=== PATIENT | male | born 1990 | race Hispanic/Latino ===

== ENCOUNTER 2019-11-22 10:48 | Inpatient (IN) | payer OTHER ==
[2019-11-21 21:00] VITALS: BP 114/96
[~2019-11-22] VITALS: Ht 180.3 cm; Wt 147.7 kg
--- OUTSIDE RECORDS SUMMARY | 2019-11-22 10:55 | XMS REPORT | Clinical Summary ---
Author Author [facility] Address Unknown Phone Unavailable Care Team Providers Care Ranch Manager Name Role Phone Asked, No Pcp PCP Unavailable Allergies No Known Allergies Medications Not on file Active Problems Not on file Social History Date Tobacco Use Types Packs/Day Years Used Current Every Day Smoker Cigarettes 0.5 Drinks/Week oz/Week Comments Alcohol Use pt reports having a few drinks a day Yes Sex Assigned at Date Recorded Not on file Industry Job Start Date Occupation Not on file Not on file Not on file Travel End Travel History Travel Start No recent travel history available. Last Filed Vital Signs Not on file Plan of Treatment Health Maintenance Due Date Last Done Comments INFLUENZA VACCINE 01/20/2020 Results Not on fileafter 11/21/2018 Insurance Type Payer Benefit Subscriber ID Effective Phone Address Plan / Dates Group PPO BCBS BCBS xxxxxxxxxxxx 2015- CHOICE Present PPO/JACINTA PEDERSON PPO Advance Directives For more information, please contact: [phone] Patient Card Doffer Explanation Type Date Recorded Advance Directives, Living Will and Medical Power of Steel Manager
[2019-11-22] MEDS ORDERED: SODIUM CHLORIDE 0.9% 1000ML 1,000 ML IV STA (11:05)
[2019-11-22] MEDS ORDERED: PANTOPRAZOLE 40 MG 10ML VIAL IV STA (11:05)
[2019-11-22] MEDS ORDERED: ONDANSETRON HCL INJ 2MG/ML 2ML 2 MG/ML VIAL IV STA (11:05)
[2019-11-22] MEDS ORDERED: LORAZEPAM INJ 2 MG/ML VIAL IV ONE ×2 (11:15→14:00)
[2019-11-22 12:30] LABS: BASOPHILS # (AUTO) 0.1 (0.0-0.1); BASOPHILS % 0.7 % (0.0-1.0); EOSINOPHILS # (AUTO) 0.1 (0.0-0.4); EOSINOPHILS % 1.6 % (0.0-6.0); HEMATOCRIT 38.2 % (38.2-49.6); HEMOGLOBIN 12.3 g/dL (14.0-18.0); LYMPHOCYTES # (AUTO) 0.8 (1.0-3.2); LYMPHOCYTES % 9.6 % (18.0-39.1); MEAN CORPUSCULAR HEMOGLOBIN 31.2 pg (28-32); MEAN CORPUSCULAR HGB CONC 32.2 g/dL (31-35); MONOCYTES # (AUTO) 0.7 (0.2-0.8); MONOCYTES % 8.6 % (4.4-11.3); NEUTROPHILS # (AUTO) 6.5 (2.1-6.9); PLATELET COUNT 147 x10e3/uL (140-360); RED BLOOD COUNT 3.94 x10e6/uL (4.3-5.7)
--- NOTE | 2019-11-22 12:39 | Diagnostic Imaging Report ---
EXAMINATION: CHEST SINGLE (PORTABLE) INDICATION: GI bleeding COMPARISON: None FINDINGS: LINES/TUBES:None LUNGS:The lungs are well-inflated. No focal consolidation or pulmonary edema. PLEURA:No pleural effusion or pneumothorax. MEDIASTINUM:The cardiomediastinal silhouette appears normal in size and shape. BONES/SOFT TISSUES:No acute osseous injury. ABDOMEN:No free air under the diaphragm. IMPRESSION: No focal pneumonia or pulmonary edema. Signed by: Chula Rodriguez MD on 11/22/2019 12:35 PM
[2019-11-22 12:47] LABS: INR 1.05; PROTHROMBIN TIME 14.4 seconds (11.9-14.5)
[2019-11-22 12:48] LABS: PARTIAL THROMBOPLASTIN TIME 35.4 seconds (23.8-35.5)
[2019-11-22 12:55] LABS: ALANINE AMINOTRANSFERASE 44 IU/L (0-55); ALBUMIN 3.9 g/dL (3.5-5.0); ALBUMIN/GLOBULIN RATIO 0.6 (0.8-2.0); ALKALINE PHOSPHATASE 249 IU/L (40-150); ANION GAP 22.7 mmol/L (8-16); BLOOD UREA NITROGEN 8 mg/dL (7-26); BUN/CREATININE RATIO 11 (6-25); CALCIUM 10.2 mg/dL (8.4-10.2); CARBON DIOXIDE 22 mmol/L (22-29); CHLORIDE 95 mmol/L (98-107); CREATINE KINASE 125 IU/L (30-200); EST GLOMERULAR FILTRATION RATE > 60 ML/MIN (60-); GLUCOSE 93 mg/dL (74-118); LIPASE 32 U/L (8-78); MAGNESIUM 1.8 MG/DL (1.3-2.1); POTASSIUM 3.7 mmol/L (3.5-5.1); SODIUM 136 mmol/L (136-145)
[2019-11-22] MEDS ORDERED: OCTREOTIDE ACETATE 0.05 MG/ML AMP IV STA (13:29)
[2019-11-22] MEDS ORDERED: MULTIVITAMINS- 12 INJECTION 10 ML, FOLIC ACID MDV 5 MG, THIAMINE HCL INJ 100 MG in SODI... IV ONE (13:30)
[2019-11-22] MEDS ORDERED: OCTREOTIDE ACETATE 500 MCG in SODIUM CHLORIDE 0.9% 250ML 250 ML IV SCH (13:45)
[2019-11-22] MEDS ORDERED: LORAZEPAM INJ 2 MG/ML VIAL IV PRN (13:45)
--- NOTE | 2019-11-22 13:49 | Emergency Department Note ---
History of Present Illnes History of Present Illness Chief Complaint: General Medicine Complaints History of Present Illness This is a 28 year old male HERE FOR BLACK TARRY STOOL FOR THE LAST 2 DAYS. STATES THAT HE IS AN ALCOHOLIC AND DRINKS 750 OF VODKA A DAY FOR THE LAST FEW YEARS. Historian: Patient Arrival Mode: Car Rn Staffing Required: No Onset (how long ago): day(s) (2) Quality: BLACK STOOLS Radiation: non-radiation Severity: moderate Onset quality: gradual Duration (how long): day(s) (2) Timing of current episode: intermittent Progression: waxing and waning Chronicity: new Context: recent illness Relieving factors: none Exacerbating factors: none Associated symptoms: denies other symptoms Past Medical/Family History Physician Review I have reviewed the patient's past medical and family history. Any updates have been documented here. Past Medical History Recent Fever: No Clinical Suspicion of Infectio: No New/Unexplained Change in Ment: No Past Medical History: Hypertension Other Medical History: GALLBLADDER DISEASE Past Surgical History: None Social History Smoking Cessation: Never Smoker Counseling Performed: No Alcohol Use: Daily (X YEARS) Any Illegal Drug Use: No TB Exposure/Symptoms: No Physically hurt or threatened: No Other Any Pre-Existing Lines (PICC,: No Is patient up to date on immun: No Last Flu: no Last Pneumovax: no Review of Systems Review of Systems Constitutional: no symptoms EENTM: no symptoms Cardiovascular: no symptoms Respiratory: no symptoms Gastrointestinal: as per HPI Genitourinary: no symptoms Musculoskeletal: no symptoms Neurological: no symptoms Psychological: no symptoms Endocrine: no symptoms Hematological/Lymphatic: no symptoms Review of other systems All other systems reviewed and negative. Physical Exam Related Data Allergies: Coded Allergies: No Known Allergies (Unverified , 11/22/19) Triage Vital Signs Vital Signs Date Time Temp Pulse Resp B/P (MAP) Pulse Ox O2 Delivery O2 Flow Rate FiO2 11/22/19 11:00 100.5 129 18 178/101 95 Vital signs reviewed: Yes Physical Exam CONSTITUTIONAL Constitutional: well-developed, well-nourished HENT HENT: normocephalic, atraumatic, oropharynx clear/moist, nose normal HENT L/R: left ext ear normal, right ext ear normal EYES Eyes: PERRL, conjunctivae normal NECK Neck: ROM normal PULMONARY Pulmonary: effort normal, breath sounds normal CARDIOVASCULAR Cardiovascular: regular rhythm, heart sounds normal, tachycardia GASTROINTESTINAL Abdominal: soft, nontender, bowel sounds normal GENITOURINARY Genitourinary: exam deferred SKIN Skin: warm, dry MUSCULOSKELETAL Musculoskeletal: ROM normal NEUROLOGICAL Neurological: alert, oriented x 3, no gross motor or sensory deficits, other (BASELINE TREMOR) PSYCHOLOGICAL Psychological: mood/affect normal, judgement normal Results Laboratory Result Diagram: 11/22/19 1120 11/22/19 1120 Laboratory Laboratory Tests Test 11/22/19 11:20 White Blood Count 8.22 x10e3/uL (4.8-10.8) Red Blood Count 3.94 x10e6/uL (4.3-5.7) Hemoglobin 12.3 g/dL (14.0-18.0) Hematocrit 38.2 % (38.2-49.6) Mean Corpuscular Volume 97.0 fL (81-99) Mean Corpuscular Hemoglobin 31.2 pg (28-32) Mean Corpuscular Hemoglobin Concent 32.2 g/dL (31-35) Red Cell Distribution Width 14.0 % (11.7-14.4) Platelet Count 147 x10e3/uL (140-360) Neutrophils (%) (Auto) 79.0 % (38.7-80.0) Lymphocytes (%) (Auto) 9.6 % (18.0-39.1) Monocytes (%) (Auto) 8.6 % (4.4-11.3) Eosinophils (%) (Auto) 1.6 % (0.0-6.0) Basophils (%) (Auto) 0.7 % (0.0-1.0) Neutrophils # (Auto) 6.5 (2.1-6.9) Lymphocytes # (Auto) 0.8 (1.0-3.2) Monocytes # (Auto) 0.7 (0.2-0.8) Eosinophils # (Auto) 0.1 (0.0-0.4) Basophils # (Auto) 0.1 (0.0-0.1) Absolute Immature Granulocyte (auto 0.04 x10e3/uL (0-0.1) Prothrombin Time 14.4 seconds (11.9-14.5) Prothromb Time International Ratio 1.05 Activated Partial Thromboplast Time 35.4 seconds (23.8-35.5) Sodium Level 136 mmol/L (136-145) Potassium Level 3.7 mmol/L (3.5-5.1) Chloride Level 95 mmol/L (98-107) Carbon Dioxide Level 22 mmol/L (22-29) Anion Gap 22.7 mmol/L (8-16) Blood Urea Nitrogen 8 mg/dL (7-26) Creatinine 0.70 mg/dL (0.72-1.25) Estimat Glomerular Filtration Rate > 60 ML/MIN (60-) BUN/Creatinine Ratio 11 (6-25) Glucose Level 93 mg/dL (74-118) Calcium Level 10.2 mg/dL (8.4-10.2) Magnesium Level 1.8 MG/DL (1.3-2.1) Total Bilirubin 4.9 mg/dL (0.2-1.2) Aspartate Amino Transf (AST/SGOT) 255 IU/L (5-34) Alanine Aminotransferase (ALT/SGPT) 44 IU/L (0-55) Alkaline Phosphatase 249 IU/L (40-150) Creatine Kinase 125 IU/L (30-200) Creatine Kinase MB 1.50 ng/mL (0-5.0) Troponin I 0.049 ng/mL (0-0.300) Total Protein 10.1 g/dL (6.5-8.1) Albumin 3.9 g/dL (3.5-5.0) Globulin 6.2 g/dL (2.3-3.5) Albumin/Globulin Ratio 0.6 (0.8-2.0) Lipase 32 U/L (8-78) Lab results reviewed: Yes Imaging Imaging results reviewed: Yes Impressions EXAMINATION: CHEST SINGLE (PORTABLE) INDICATION: GI bleeding COMPARISON: None FINDINGS: LINES/TUBES:None LUNGS:The lungs are well-inflated. No focal consolidation or pulmonary edema. PLEURA:No pleural effusion or pneumothorax. MEDIASTINUM:The cardiomediastinal silhouette appears normal in size and shape. BONES/SOFT TISSUES:No acute osseous injury. ABDOMEN:No free air under the diaphragm. IMPRESSION: No focal pneumonia or pulmonary edema. Signed by: Chula Rodriguez MD on 11/22/2019 12:35 PM Diagnostics Tests Diagnostic test(s) reviewed: Yes Critical Care Time Subsequent provider I assumed direction of critical care for this patient from another provider of my specialty. Assessment & Plan Assessment & Plan Final Impression: (1) ALCOHOL ABUSE WITH INTOXICATION, UNCOMPLICATED (2) CHRONIC GASTRIC ULCER WITHOUT HEMORRHAGE OR PERFORATION (3) ENCOUNTER FOR SCREENING FOR UPPER GASTROINTESTINAL DISORDER Assessment & Plan ADMIT TO RON DESAI - SPOKE WITH BOTH Depart Disposition: ADMITTED Last Vital Signs Date Time Temp Pulse Resp B/P (MAP) Pulse Ox O2 Delivery O2 Flow Rate FiO2 11/22/19 13:46 99.4 125 18 11/22/19 13:29 94 Medications in the ED Pantoprazole Sodium 80 mg ONCE STAT IV Last administered on 11/22/19at 11:44; Admin Dose 80 MG; Start 11/22/19 at 11:05; Stop 11/22/19 at 11:11; Status DC Ondansetron HCl 4 mg ONCE STAT IV Last administered on 11/22/19at 11:44; Admin Dose 4 MG; Start 11/22/19 at 11:05; Stop 11/22/19 at 11:11; Status DC Sodium Chloride 1,000 ml @ 0 mls/hr Q0M STAT IV Last administered on 11/22/19at 11:44; Admin Dose 999 MLS/HR; Start 11/22/19 at 11:05; Stop 11/22/19 at 11:09; Status DC Lorazepam 1 mg ONCE ONCE IV Last administered on 11/22/19at 11:44; Admin Dose 1 MG; Start 11/22/19 at 11:15; Stop 11/22/19 at 11:16; Status DC Multivitamins 10 ml/Folic Acid 5 mg/Thiamine HCl 100 mg/Sodium Chloride 1,012 ml @ 125 mls/hr Q8H6M ONCE IV ; Start 11/22/19 at 13:30; Stop 11/22/19 at 21:35 Octreotide Acetate 0.05 mg ONCE STAT IV ; Start 11/22/19 at 13:29; Stop 11/22/19 at 13:30; Status DC Octreotide Acetate 500 mcg/ Sodium Chloride 251 ml @ 25.1 mls/hr Q10H IV ; Start 11/22/19 at 13:45; Stop 11/22/19 at 13:36; Status DC Octreotide Acetate 500 mcg/ Sodium Chloride 251 ml @ 25 mls/hr Q10H3M IV ; Start 11/22/19 at 14:00; Stop 12/22/19 at 13:59 Pantoprazole Sodium 40 mg Q12HR IV ; Start 11/22/19 at 21:00; Stop 12/22/19 at 20:59 Lorazepam 1 mg Q4HR PRN IV EVID OF ETOH WITHDRAWAL; Start 11/22/19 at 13:45; Stop 11/29/19 at 13:44 ROEL ALFONSO MD Nov 22, 2019 13:49
[2019-11-22] MEDS: OCTREOTIDE ACETATE 500 MCG in SODIUM CHLORIDE 0.9% 250ML 250 ML IV SCH (14:30)
--- OUTSIDE RECORDS SUMMARY | 2019-11-22 14:39 | XMS REPORT | Continuity of Care Document ---
Author Author [facility] t Organization [facility] Address [address] [place] [address] [address] [place] [address] Phone Unavailable Care Team Providers Care Sheet Rock Taper Name Role Phone Asked, Pcp No PCP Unavailable Santana ALFONSO Attphys Unavailable Problems This patient has no known problems. Allergies, Adverse Reactions, Alerts This patient has no known allergies or adverse reactions. Social History Social Habit Start Date Stop Date Quantity Comments Source History of tobacco use Cigarette Smoker Joel Garcia Sex Assigned At Randi Garcia Cigarettes smoked current (pack per day) - Reported 00:00:00 2016-02-28 00:00:00 Joel Garcia Alcohol intake 2016-02-28 00:00:00 2016-02-28 00:00:00 Current drinker of alcohol (finding) Joel Garcia Alcohol Comment 2016-02-28 00:00:00 2016-02-28 00:00:00 pt repor ts having a few drinks a day Joel Garcia Smoking Status Start Date Stop Date Source Current every day smoker 2016-02-28 00:00:00 Randi Garcia Medications This patient has no known medications. Procedures This patient has no known procedures. Plan of Care Planned Activity Planned Date Details Comments Source Future Scheduled Test 2020-01-20 00:00:00 INFLUENZA VACCINE [code = INFLUENZA VACCINE] Joel Garcia Results Test Description Test Time Test Comments Results Result Comments Source CHEST SINGLE (PORTABLE) 2019-11-22 12:35:[address] [address] Patient Name: WILLIE MCKAY JR MR #: [id number] : 1990 Age/Sex: 28/M Req #: [id number] Adm Physician: Ordered by: ROEL ALFONSO MD Report #: [id number] Location: ER Room/Bed: Procedure: [id number] DX/CHEST SINGLE (PORTABLE) Exam Date: 11/22/19 Exam Time: 1155 REPORT STATUS: Signed EXAMINATION: CHEST SINGLE (PORTABLE) INDICATION: GI bleeding COMPARISON: None FINDINGS: LINES/TUBES:None LUNGS:The lungs are well-inflated. No focal consolidation or pulmonary edema. PLEURA:No pleural effusion or pneumothor ax. MEDIASTINUM:The cardiomediastinal silhouette appears normal in size and shape. BONES/SOFT TISSUES:No acute osseous injury. ABDOMEN:No free air under the diaphragm. IMPRESSION: No focal pneumonia or pulmonary edema. Signed by: Tommie Wright MD on 11/22/2019 12:35 PM Dictated By: TOMMIE WRIGHT MD [id number] Transcribed By: ALYSSA on 11/22/19 1235 COPY TO: ROEL ALFONSO MD
--- OUTSIDE RECORDS SUMMARY | 2019-11-22 14:39 | XMS REPORT | Clinical Summary ---
Author Author [facility] Organization [facility] Address Unknown Phone Unavailable Care Team Providers Care Reading Tutor Name Role Phone Asked, No Pcp PCP [...] Advance Directives For more information, please contact: [phone] Patient Public Relations Account Supervisor Explanation Type Date Recorded Advance Directives, Living Will and Medical Power of Shear Operator
[2019-11-22] MEDS ORDERED: HYDRALAZINE HCL 20 MG/ML VIAL IV PRN (16:15)
[2019-11-22] MEDS ORDERED: ONDANSETRON HCL INJ 2MG/ML 2ML 2 MG/ML VIAL IV PRN (16:15)
[2019-11-22] MEDS: CHLORDIAZEPOXIDE HCL 25 MG CAP PO SCH (18:13)
[2019-11-22 20:00] LABS: BASOPHILS # (AUTO) 0.1 (0.0-0.1); EOSINOPHILS # (AUTO) 0.1 (0.0-0.4); EOSINOPHILS % 1.4 % (0.0-6.0); HEMATOCRIT 36.9 % (38.2-49.6); HEMOGLOBIN 11.6 g/dL (14.0-18.0); LYMPHOCYTES # (AUTO) 0.6 (1.0-3.2); LYMPHOCYTES % 8.4 % (18.0-39.1); MEAN CORPUSCULAR HEMOGLOBIN 31.7 pg (28-32); MEAN CORPUSCULAR HGB CONC 31.4 g/dL (31-35); MEAN CORPUSCULAR VOLUME 100.8 fL (81-99); MONOCYTES # (AUTO) 0.6 (0.2-0.8); MONOCYTES % 8.5 % (4.4-11.3); NEUTROPHILS # (AUTO) 5.9 (2.1-6.9); NEUTROPHILS % 80.3 % (38.7-80.0); PLATELET COUNT 135 x10e3/uL (140-360); RED BLOOD COUNT 3.66 x10e6/uL (4.3-5.7)
[2019-11-22 21:20] VITALS: BP 168/76
--- NOTE | 2019-11-22 21:20 | NUR ---
RECEIVED PATIENT FROM ER IN STABLE CONDITION, NO SIGNS OF DISTRESS NOTED. IV FLUIDS ARE RUNNING AT ORDERED RATE AND PATIENT VOICES NO PAIN AT THIS TIME. BED IS IN LOW POSITION, BOTH SIDE RAILS ARE UP, CALL LIGHT IS WITHIN EASY REACH, WILL CONTINUE TO MONITOR.
[2019-11-22] MEDS: PANTOPRAZOLE 40 MG 10ML VIAL IV SCH (21:37)
[2019-11-22] MEDS ORDERED: ACETAMINOPHEN 650 MG SUPP PR PRN (22:30)
[2019-11-23] VITALS (8 sets, daily range): BP systolic 134–147; BP diastolic 68–89
[2019-11-23] MEDS: CHLORDIAZEPOXIDE HCL 25 MG CAP PO SCH ×5 (00:30→23:40)
[2019-11-23 01:01] LABS: BASOPHILS # (AUTO) 0.1 (0.0-0.1); BASOPHILS % 0.7 % (0.0-1.0); EOSINOPHILS # (AUTO) 0.2 (0.0-0.4); EOSINOPHILS % 2.5 % (0.0-6.0); HEMATOCRIT 36.6 % (38.2-49.6); HEMOGLOBIN 11.7 g/dL (14.0-18.0); LYMPHOCYTES # (AUTO) 0.9 (1.0-3.2); LYMPHOCYTES % 10.4 % (18.0-39.1); MEAN CORPUSCULAR HEMOGLOBIN 31.8 pg (28-32); MEAN CORPUSCULAR VOLUME 99.5 fL (81-99); MONOCYTES # (AUTO) 0.7 (0.2-0.8); MONOCYTES % 8.2 % (4.4-11.3); NEUTROPHILS # (AUTO) 6.8 (2.1-6.9); PLATELET COUNT 144 x10e3/uL (140-360); RED BLOOD COUNT 3.68 x10e6/uL (4.3-5.7); RED CELL DISTRIBUTION WIDTH 14.1 % (11.7-14.4)
[2019-11-23 02:50] LABS: BILIRUBIN,URINE MODERATE (NEGATIVE); CLARITY,URINE SL CLOUDY (CLEAR); COLOR,URINE ORANGE (YELLOW); KETONES,URINE 2+ (NEGATIVE); LEUKOCYTE ESTERASE ,URINE NEGATIVE (NEGATIVE); NITRITE,URINE NEGATIVE (NEGATIVE); PROTEIN,URINE DIPSTICK TRACE (NEGATIVE)
[2019-11-23 03:38] LABS: BACTERIA,URINE FEW /HPF; EPITHELIAL CELLS,URINE FEW /LPF; RBC,URINE 0-5 /HPF (0-5); WBC,URINE (MAN) 0-5 /HPF (0-5)
[2019-11-23] MEDS ORDERED: OCTREOTIDE ACETATE 2 ML ONE (03:39)
[2019-11-23] MEDS ORDERED: SODIUM CHLORIDE 0.9% 250ML 250 ML ONE (03:46)
[2019-11-23] MEDS: OCTREOTIDE ACETATE 500 MCG in SODIUM CHLORIDE 0.9% 250ML 250 ML IV SCH ×3 (03:48→20:09)
[2019-11-23 05:39] LABS: BASOPHILS # (AUTO) 0.1 (0.0-0.1); BASOPHILS % 0.9 % (0.0-1.0); EOSINOPHILS # (AUTO) 0.3 (0.0-0.4); EOSINOPHILS % 4.3 % (0.0-6.0); HEMATOCRIT 35.5 % (38.2-49.6); HEMOGLOBIN 11.3 g/dL (14.0-18.0); LYMPHOCYTES # (AUTO) 0.7 (1.0-3.2); LYMPHOCYTES % 10.3 % (18.0-39.1); MEAN CORPUSCULAR HEMOGLOBIN 32.2 pg (28-32); MEAN CORPUSCULAR HGB CONC 31.8 g/dL (31-35); MEAN CORPUSCULAR VOLUME 101.1 fL (81-99); MONOCYTES # (AUTO) 0.6 (0.2-0.8); MONOCYTES % 8.4 % (4.4-11.3); NEUTROPHILS # (AUTO) 5.2 (2.1-6.9); NEUTROPHILS % 75.8 % (38.7-80.0); PLATELET COUNT 114 x10e3/uL (140-360); RED BLOOD COUNT 3.51 x10e6/uL (4.3-5.7)
[2019-11-23 05:58] LABS: ALANINE AMINOTRANSFERASE 38 IU/L (0-55); ALBUMIN 3.4 g/dL (3.5-5.0); ALBUMIN/GLOBULIN RATIO 0.6 (0.8-2.0); ALKALINE PHOSPHATASE 200 IU/L (40-150); ANION GAP 16.7 mmol/L (8-16); BLOOD UREA NITROGEN 9 mg/dL (7-26); BUN/CREATININE RATIO 12 (6-25); CALCIUM 9.2 mg/dL (8.4-10.2); CARBON DIOXIDE 22 mmol/L (22-29); CHLORIDE 97 mmol/L (98-107); CREATININE, SERUM 0.78 mg/dL (0.72-1.25); EST GLOMERULAR FILTRATION RATE > 60 ML/MIN (60-); GLUCOSE 99 mg/dL (74-118); POTASSIUM 3.7 mmol/L (3.5-5.1); SODIUM 132 mmol/L (136-145)
[2019-11-23] MEDS: PANTOPRAZOLE 40 MG 10ML VIAL IV SCH ×2 (08:59→20:22)
[2019-11-23] MEDS: LORAZEPAM INJ 2 MG/ML VIAL IV PRN ×2 (11:38→20:06)
[2019-11-23 12:24] LABS: BASOPHILS # (AUTO) 0.1 (0.0-0.1); BASOPHILS % 0.6 % (0.0-1.0); EOSINOPHILS # (AUTO) 0.3 (0.0-0.4); EOSINOPHILS % 3.7 % (0.0-6.0); HEMOGLOBIN 11.6 g/dL (14.0-18.0); LYMPHOCYTES # (AUTO) 0.6 (1.0-3.2); LYMPHOCYTES % 7.9 % (18.0-39.1); MEAN CORPUSCULAR HEMOGLOBIN 31.8 pg (28-32); MEAN CORPUSCULAR HGB CONC 32.2 g/dL (31-35); MEAN CORPUSCULAR VOLUME 98.6 fL (81-99); MONOCYTES # (AUTO) 0.5 (0.2-0.8); MONOCYTES % 6.6 % (4.4-11.3); NEUTROPHILS # (AUTO) 6.3 (2.1-6.9); NEUTROPHILS % 80.8 % (38.7-80.0); PLATELET COUNT 125 x10e3/uL (140-360); RED BLOOD COUNT 3.65 x10e6/uL (4.3-5.7); RED CELL DISTRIBUTION WIDTH 13.9 % (11.7-14.4)
[2019-11-23] MEDS: SODIUM CHLORIDE 0.9% 1000ML 1,000 ML IV SCH ×2 (13:00→20:15)
[2019-11-23] MEDS ORDERED: LIDOCAINE HCL 2% LOCAL INJ 5 ML SDV VIAL INJ ONE (13:37)
[2019-11-23] MEDS ORDERED: GLYCOPYRROLATE INJ 0.2 MG/ML VIAL ONE (13:37)
[2019-11-23] MEDS ORDERED: PROPOFOL IV EMULSION 10 MG/ML 20 ML VIAL ONE (13:37)
[2019-11-23] MEDS ORDERED: KETAMINE HCL INJ 50 MG/ML 10 ML VIAL ONE (15:27)
[2019-11-23] MEDS ORDERED: MIDAZOLAM HCL 5 MG/ML VIAL ONE (15:27)
[2019-11-23] MEDS ORDERED: FENTANYL CITRATE/PF 100MCG/2 ML INJ ONE (15:27)
[2019-11-23] MEDS ORDERED: MIDAZOLAM HCL 2 MG/2 ML VIAL ONE (15:27)
[2019-11-23] MEDS ORDERED: OCTREOTIDE ACETATE 0.05 MG/ML AMP IV STA (15:41)
[2019-11-23] MEDS ORDERED: OCTREOTIDE ACETATE 500 MCG in SODIUM CHLORIDE 0.9% 250ML 249 ML IV SCH (15:45)
[2019-11-23] MEDS ORDERED: PHYTONADIONE 10 MG/ML AMP SQ ONE (16:00)
--- NOTE | 2019-11-23 16:25 | Operative Report ---
DATE OF PROCEDURE: 11/23/2019 SURGEON: Derek Mcmullen MD PROCEDURES: EGD with biopsies. INDICATION FOR EGD: History of hematemesis, melena. MEDICATIONS: The patient was done under MAC, please see anesthesiologist's note. PROCEDURE IN DETAIL: With the patient in left lateral decubitus position, a flexible fiberoptic Olympus gastroscope was introduced into the esophagus under direct visualization without any difficulty. Grade 1 to 2 esophageal varices were noted, none of which was actively bleeding. The scope was then advanced with ease into the stomach and some coffee-ground material was noted in the stomach. Diffuse portal hypertensive gastropathy was noted throughout the stomach. The pylorus was of normal contour and shape, it was intubated with ease and the scope was advanced all the way to the second portion of the duodenum. The scope was then withdrawn slowly, mucosa overlying the proximal second portion and duodenal bulb appeared to be within normal limits. The scope was then withdrawn back into the stomach and retroflexed, mucosa overlying the fundus also revealed changes compatible with portal hypertensive gastropathy. There were no fundal varices or cardia varices. The scope was then straightened out. Biopsies were obtained from the antrum to rule out superimposed H. pylori. The scope was subsequently withdrawn. The patient tolerated the procedure well. IMPRESSION: 1. Esophageal varices, grade 1 to 2 without active bleeding or stigmata of recent hemorrhage. 2. Coffee-ground material in stomach. 3. Portal hypertensive gastropathy. PLAN: 1. Follow up histology. 2. We will start Inderal 10 mg one p.o. b.i.d. 3. We will also initiate an octreotide drip. Derek Mcmullen MD [facility] /[id number] cc: Marcelino Lieberman MD
[2019-11-23] MEDS: BUPROPION HCL 75 MG TAB PO SCH (16:58)
[2019-11-23] MEDS: PROPRANOLOL HCL 10 MG TAB PO SCH (16:58)
[2019-11-23] MEDS: TOPIRAMATE 25 MG TAB PO SCH (16:58)
--- NOTE | 2019-11-23 18:30 | Consultation ---
DATE OF CONSULTATION: 11/23/2019 Psychiatric Consultation. REASON FOR CONSULTATION: To evaluate the patient's mood and alcohol abuse. HISTORY OF PRESENT ILLNESS: The patient is a 28-year-old male admitted to the hospital for alcohol abuse. Psychiatric consultation is called to evaluate the patient's alcoholism and mood. Upon evaluation today, the patient is found to be sitting in the bed. He is alert, awake, and oriented to situation. He is calm and cooperative. He is not confused or agitated. He is not tremulous. He reports that he has been drinking heavily about 750 mL of hard liquor every day and last drink was two days ago. He came in because of nosebleed and also history of alcoholism. He reports that he drinks as a coping mechanism for stress and relationship issues. The patient admits to feeling anxious and depressed, but denies any suicidal or homicidal ideation. Denies any hallucination. Denies feeling hopeless or helpless. Reports poor sleep and intermittent appetite issues. PAST PSYCHIATRIC HISTORY: The patient denies past psychiatric history. He denies past suicide attempts. He reports drinking heavily every day about 750 mL of hard liquors. Denies drug use. FAMILY HISTORY: Denies. 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 MENTAL STATUS EXAM: The patient is a young male. He is alert, awake, and oriented to situation. Mood is anxious and depressed. Affect is polite. Psychomotor state is passive. Denies suicidal or homicidal ideation. Denies any hallucination. Thought process is concrete. No delusion elicited. Insight and judgment are fair. Memory appears to be grossly intact. CURRENT MEDICATIONS: 1. Librium 25 mg p.o. q.6 hours schedule. 2. Ativan 1 mg IV q.3 hours p.r.n. for withdrawal. 3. Protonix. 4. Octreotide. 5. Ondansetron. 6. Hydralazine. 7. Sodium chloride. 8. Folic acid. 9. Acetaminophen. CURRENT LABS: Sodium 132, potassium 3.7, chloride 97, CO2 of 22, BUN 9, creatinine 0.7. AST 35, ALT 38. WBC 7.83, RBC 3.65, hemoglobin 11.6, hematocrit 36, platelets 125. ASSESSMENT: 1. Adjustment disorder, mixed mood. 2. Alcohol abuse/dependency. PLAN: 1. Continue Librium 25 mg p.o. q.6 hours schedule. 2. Continue Ativan 1 mg IV q.3 hours as needed for withdrawal. 3. Add Wellbutrin 75 mg p.o. b.i.d. 4. Add Topamax 50 mg p.o. daily. 5. Monitor for mood, any sign of withdrawal. 6. Supportive therapy. 7. Recommend total abstinence from alcohol. 8. We will provide patient with resources for therapy and psychiatry once discharged. Thank you for this consultation. Dictated by Le Sampson PA-C Mychal Espinal MD [facility] /[id number]
[2019-11-23 18:36] LABS: BASOPHILS # (AUTO) 0.1 (0.0-0.1); BASOPHILS % 0.6 % (0.0-1.0); EOSINOPHILS # (AUTO) 0.4 (0.0-0.4); EOSINOPHILS % 4.1 % (0.0-6.0); HEMATOCRIT 36.3 % (38.2-49.6); HEMOGLOBIN 11.5 g/dL (14.0-18.0); LYMPHOCYTES # (AUTO) 0.7 (1.0-3.2); LYMPHOCYTES % 7.3 % (18.0-39.1); MEAN CORPUSCULAR HEMOGLOBIN 31.5 pg (28-32); MEAN CORPUSCULAR HGB CONC 31.7 g/dL (31-35); MEAN CORPUSCULAR VOLUME 99.5 fL (81-99); MONOCYTES # (AUTO) 0.5 (0.2-0.8); MONOCYTES % 5.6 % (4.4-11.3); NEUTROPHILS # (AUTO) 7.8 (2.1-6.9); NEUTROPHILS % 82.1 % (38.7-80.0); PLATELET COUNT 141 x10e3/uL (140-360); RED BLOOD COUNT 3.65 x10e6/uL (4.3-5.7); RED CELL DISTRIBUTION WIDTH 13.9 % (11.7-14.4)
--- NOTE | 2019-11-23 19:30 | NUR ---
walking rounds complete, pt stable at this time.
--- NOTE | 2019-11-23 20:00 | NUR ---
PATIENT IN STABLE CONDITION, NO SIGNS OF DISTRESS NOTED. IV FLUIDS ARE RUNNING AT ORDERED RATE AND PATIENT VOICES NO PAIN AT THIS TIME. BED IS IN LOW POSITION, BOTH SIDE RAILS ARE UP, CALL LIGHT IS WITHIN EASY REACH, WILL CONTINUE TO MONITOR.
[2019-11-24] VITALS (8 sets, daily range): BP systolic 120–148; BP diastolic 61–82
[2019-11-24] MEDS: LORAZEPAM INJ 2 MG/ML VIAL IV PRN ×2 (03:20→12:35)
[2019-11-24] MEDS: CHLORDIAZEPOXIDE HCL 25 MG CAP PO SCH ×3 (05:51→22:16)
[2019-11-24 06:14] LABS: BASOPHILS # (AUTO) 0.1 (0.0-0.1); BASOPHILS % 0.7 % (0.0-1.0); EOSINOPHILS # (AUTO) 0.4 (0.0-0.4); EOSINOPHILS % 5.1 % (0.0-6.0); HEMATOCRIT 35.1 % (38.2-49.6); LYMPHOCYTES # (AUTO) 0.9 (1.0-3.2); LYMPHOCYTES % 10.7 % (18.0-39.1); MEAN CORPUSCULAR HEMOGLOBIN 31.5 pg (28-32); MEAN CORPUSCULAR HGB CONC 31.3 g/dL (31-35); MEAN CORPUSCULAR VOLUME 100.6 fL (81-99); MONOCYTES # (AUTO) 0.6 (0.2-0.8); MONOCYTES % 7.4 % (4.4-11.3); NEUTROPHILS # (AUTO) 6.2 (2.1-6.9); NEUTROPHILS % 75.7 % (38.7-80.0); PLATELET COUNT 128 x10e3/uL (140-360); RED BLOOD COUNT 3.49 x10e6/uL (4.3-5.7); RED CELL DISTRIBUTION WIDTH 13.9 % (11.7-14.4)
--- NOTE | 2019-11-24 07:00 | NUR ---
Received reported from off going nurse. Patient in stable condition, no s/s of distress noted. Telemetry applied. Iv infusing site asymptomatic with transparent dressing applied C/D/I. Bed in lowest position and locked. Call light within reach.
[2019-11-24 07:05] LABS: ALANINE AMINOTRANSFERASE 37 IU/L (0-55); ALBUMIN 3.2 g/dL (3.5-5.0); ALBUMIN/GLOBULIN RATIO 0.7 (0.8-2.0); ALKALINE PHOSPHATASE 171 IU/L (40-150); ANION GAP 13.5 mmol/L (8-16); BLOOD UREA NITROGEN 10 mg/dL (7-26); BUN/CREATININE RATIO 14 (6-25); CALCIUM 8.6 mg/dL (8.4-10.2); CARBON DIOXIDE 25 mmol/L (22-29); CHLORIDE 98 mmol/L (98-107); CREATININE, SERUM 0.73 mg/dL (0.72-1.25); EST GLOMERULAR FILTRATION RATE > 60 ML/MIN (60-); GLUCOSE 99 mg/dL (74-118); MAGNESIUM 1.7 MG/DL (1.3-2.1); POTASSIUM 3.5 mmol/L (3.5-5.1); SODIUM 133 mmol/L (136-145)
[2019-11-24] MEDS: PANTOPRAZOLE 40 MG 10ML VIAL IV SCH ×2 (08:35→21:10)
[2019-11-24] MEDS: FOLIC ACID 1 MG TAB PO SCH (08:35)
[2019-11-24] MEDS: PROPRANOLOL HCL 10 MG TAB PO SCH ×2 (08:36→17:27)
[2019-11-24] MEDS: BUPROPION HCL 75 MG TAB PO SCH ×2 (08:36→17:27)
[2019-11-24] MEDS: TOPIRAMATE 25 MG TAB PO SCH (09:00)
[2019-11-24 12:16] LABS: BASOPHILS # (AUTO) 0.1 (0.0-0.1); BASOPHILS % 0.9 % (0.0-1.0); EOSINOPHILS # (AUTO) 0.5 (0.0-0.4); EOSINOPHILS % 4.9 % (0.0-6.0); HEMATOCRIT 37.2 % (38.2-49.6); HEMOGLOBIN 11.6 g/dL (14.0-18.0); LYMPHOCYTES # (AUTO) 0.9 (1.0-3.2); LYMPHOCYTES % 9.4 % (18.0-39.1); MEAN CORPUSCULAR HGB CONC 31.2 g/dL (31-35); MEAN CORPUSCULAR VOLUME 102.8 fL (81-99); MONOCYTES # (AUTO) 0.8 (0.2-0.8); MONOCYTES % 7.6 % (4.4-11.3); NEUTROPHILS # (AUTO) 7.6 (2.1-6.9); NEUTROPHILS % 76.6 % (38.7-80.0); PLATELET COUNT 138 x10e3/uL (140-360); RED BLOOD COUNT 3.62 x10e6/uL (4.3-5.7)
--- NOTE | 2019-11-24 12:19 | NUR ---
Pt. expressed no spiritual or emotional concerns at this time. Pt identifies as Agnostic. Fellmongery Worker DALE Milan, provided hospitality and information on how to reach gut sorter, if needed. No need to follow at this time. GORDO SHANE Fellmongery Worker Spiritual Care Department O: [phone]
[2019-11-24 12:27] LABS: PLATELET ESTIMATE SLIGHTLY DECREASED; PLATELET MORPHOLOGY COMMENT NORMAL
[2019-11-24] MEDS: SODIUM CHLORIDE 0.9% 1000ML 1,000 ML IV SCH ×2 (13:57→23:30)
[2019-11-24] MEDS: OCTREOTIDE ACETATE 500 MCG in SODIUM CHLORIDE 0.9% 250ML 250 ML IV SCH (13:57)
--- NOTE | 2019-11-24 15:14 | Progress Note ---
DATE: 11/24/2019 Psychiatric Progress Note SUBJECTIVE: The patient was evaluated and events noted. The patient is in the room. He not tremulous. He is calm, cooperative. He denies any depression or anxiety. Denies any hallucination. He reports poor sleep last night. Denies any side effects to medication. He states that his appetite is okay. ASSESSMENT: 1. Adjustment disorder with mixed mood. 2. Alcohol abuse/dependency. PLAN: 1. Continue Wellbutrin 75 mg p.o. b.i.d. 2. Continue Topamax 50 mg p.o. daily. 3. Reduce Librium to 25 mg p.o. q.8 hours schedule. 4. Continue Ativan 1 mg IV q.3 hours as needed. 5. Add melatonin for sleep. 6. Monitor for mood. 7. Supportive therapy. 8. I also recommend total abstinence from alcohol. Dictated by Le Sampson PA-C Mychal Espinal MD [facility] /[id number]
[2019-11-24 18:06] LABS: BASOPHILS # (AUTO) 0.1 (0.0-0.1); EOSINOPHILS # (AUTO) 0.5 (0.0-0.4); EOSINOPHILS % 5.4 % (0.0-6.0); HEMATOCRIT 34.9 % (38.2-49.6); HEMOGLOBIN 10.9 g/dL (14.0-18.0); LYMPHOCYTES # (AUTO) 0.9 (1.0-3.2); LYMPHOCYTES % 9.7 % (18.0-39.1); MEAN CORPUSCULAR HEMOGLOBIN 31.6 pg (28-32); MEAN CORPUSCULAR HGB CONC 31.2 g/dL (31-35); MEAN CORPUSCULAR VOLUME 101.2 fL (81-99); MONOCYTES # (AUTO) 0.6 (0.2-0.8); MONOCYTES % 6.8 % (4.4-11.3); NEUTROPHILS # (AUTO) 6.9 (2.1-6.9); NEUTROPHILS % 76.5 % (38.7-80.0); PLATELET COUNT 142 x10e3/uL (140-360); RED BLOOD COUNT 3.45 x10e6/uL (4.3-5.7); RED CELL DISTRIBUTION WIDTH 13.9 % (11.7-14.4)
--- NOTE | 2019-11-24 19:25 | NUR ---
Patient received sitting up in bed. AAO x 4. Patient had no complaints of pain. Respirations even and non-labored. Safety measures implemented. Patient instructed to call for assistance when needed. Call light within reach.
--- NOTE | 2019-11-24 19:29 | NUR ---
Completed bedside shift report and rounding with the oncoming night nurse. patient in stable condition, no s/s of distress noted. No pain voiced. Bed in lowest position and locked. Call light within reach.
[2019-11-24] MEDS: MELATONIN 3 MG TAB PO SCH ×2 (21:00→21:10)
[2019-11-24] MEDS ORDERED: OCTREOTIDE ACETATE 2 ML ONE (23:49)
[2019-11-25] VITALS: BP 122/73
[2019-11-25] MEDS ORDERED: OCTREOTIDE ACETATE 500 MCG in SODIUM CHLORIDE 0.9% 250ML 250 ML IV SCH ×2
--- NOTE | 2019-11-25 01:58 | NUR ---
Dr. Jessica Mcmullen here to see patient. New order received to advance diet from Full Liquid to 2g Sodium diet.
--- NOTE | 2019-11-25 02:48 | NUR ---
Patient given teaching material on "2G sodium diet".
[2019-11-25 04:00] VITALS: BP 150/69
[2019-11-25 05:44] LABS: BASOPHILS # (AUTO) 0.1 (0.0-0.1); BASOPHILS % 0.7 % (0.0-1.0); EOSINOPHILS # (AUTO) 0.5 (0.0-0.4); EOSINOPHILS % 5.1 % (0.0-6.0); HEMATOCRIT 36.1 % (38.2-49.6); HEMOGLOBIN 11.2 g/dL (14.0-18.0); LYMPHOCYTES # (AUTO) 0.8 (1.0-3.2); LYMPHOCYTES % 8.7 % (18.0-39.1); MEAN CORPUSCULAR HEMOGLOBIN 32.2 pg (28-32); MEAN CORPUSCULAR VOLUME 103.7 fL (81-99); MONOCYTES # (AUTO) 0.8 (0.2-0.8); NEUTROPHILS # (AUTO) 7.3 (2.1-6.9); NEUTROPHILS % 76.9 % (38.7-80.0); PLATELET COUNT 157 x10e3/uL (140-360); RED BLOOD COUNT 3.48 x10e6/uL (4.3-5.7); RED CELL DISTRIBUTION WIDTH 14.4 % (11.7-14.4)
[2019-11-25] MEDS: CHLORDIAZEPOXIDE HCL 25 MG CAP PO SCH ×2 (05:50→13:00)
[2019-11-25 06:06] LABS: ALANINE AMINOTRANSFERASE 46 IU/L (0-55); ALBUMIN 3.5 g/dL (3.5-5.0); ALBUMIN/GLOBULIN RATIO 0.6 (0.8-2.0); ALKALINE PHOSPHATASE 181 IU/L (40-150); ANION GAP 14.5 mmol/L (8-16); BLOOD UREA NITROGEN 9 mg/dL (7-26); BUN/CREATININE RATIO 12 (6-25); CALCIUM 8.5 mg/dL (8.4-10.2); CARBON DIOXIDE 22 mmol/L (22-29); CHLORIDE 99 mmol/L (98-107); CREATININE, SERUM 0.75 mg/dL (0.72-1.25); EST GLOMERULAR FILTRATION RATE > 60 ML/MIN (60-); GLUCOSE 106 mg/dL (74-118); POTASSIUM 3.5 mmol/L (3.5-5.1); SODIUM 132 mmol/L (136-145)
--- NOTE | 2019-11-25 07:07 | NUR ---
Walking rounds done. Patient resting comfortably. Shift report given to oncoming nurse.
[2019-11-25 08:00] VITALS: BP 138/90
[2019-11-25] MEDS: FOLIC ACID 1 MG TAB PO SCH (08:56)
[2019-11-25] MEDS: PANTOPRAZOLE 40 MG 10ML VIAL IV SCH (08:56)
[2019-11-25] MEDS: PROPRANOLOL HCL 10 MG TAB PO SCH (08:57)
[2019-11-25] MEDS: TOPIRAMATE 25 MG TAB PO SCH (08:57)
[2019-11-25] MEDS: BUPROPION HCL 75 MG TAB PO SCH (08:57)
[2019-11-25] MEDS: LORAZEPAM INJ 2 MG/ML VIAL IV PRN (09:09)
[2019-11-25 10:04] VITALS: BP 138/90
[2019-11-25] MEDS ORDERED: TOPAMAX25 MG PO ×2 (10:07→10:12)
[2019-11-25] MEDS ORDERED: PANTOPRAZOLE SO40 MG PO (10:07)
[2019-11-25] MEDS ORDERED: PROPRANOLOL HCL10 MG PO (10:07)
[2019-11-25] MEDS ORDERED: CHLORDIAZEPOXID25 MG PO (10:07)
[2019-11-25] MEDS ORDERED: BUPROPION HCL75 MG PO (10:07)
[2019-11-25 12:00] VITALS: BP 117/61
--- NOTE | 2019-11-25 12:11 | Diagnostic Imaging Report ---
EXAM: Right upper quadrant abdominal ultrasound INDICATION: Jaundice. COMPARISON: None. TECHNIQUE: Transverse and longitudinal images of the right upper quadrant abdomen were obtained FINDINGS: Somewhat limited evaluation secondary to body habitus and bowel gas. Liver: Size: 24.5 cm in the right midclavicular line, enlarged Appearance: Increased echogenicity, smooth contour Mass: No focal masses Gallbladder: No distention, pericholecystic fluid, wall thickening, stone, or reported sonographic Rios's sign. Gallbladder wall measures 0.3 cm. Bile Ducts: Intrahepatic Ducts: No dilatation Extrahepatic Ducts: Common bile duct measures 0.3 cm, no dilatation Pancreas: Not well visualized due to overlying bowel gas. Kidney: The right kidney measures 11.8 cm without evidence of hydronephrosis or stone. Vessels: Aorta: Not visualized due to overlying bowel gas. Inferior Vena Cava: Visualized portions are normal Main Portal Vein: 1.3 cm, normal size with hepatopetal flow. Free Fluid: No evidence of ascites. IMPRESSION: Somewhat limited evaluation secondary to body habitus and bowel gas. Hepatic steatosis and hepatomegaly. No sonographic evidence of cholelithiasis or cholecystitis. Signed by: Dr. Jeanette Puentes MD on 11/25/2019 12:08 PM
--- NOTE | 2019-11-25 12:40 | NUR ---
PT DISCHARGED HOME AT THIS TIME MEDICATIONS, PT EDUCATED ON HIS PRESCRIPTIONS, AND WAS ASKED TO FOLLOW UP WITH HIS PCP AND A PSYCHIATRIST DR. HERNANDEZ, IV SITE WAS REMOVED AT THIS TIME, NO SWELLING NO REDNESS TO SITE, PT CALLED AN UBER AT THIS TIME, PT WAS TAKEN TO VIA WHEEL CHAIR TO FRONT DOOR EXIT.
--- NOTE | 2019-11-25 13:13 | Discharge Summary ---
ADMISSION DIAGNOSES: Black tarry stools and coffee-grounds emesis, alcohol abuse, morbid obesity with a BMI of 44.6, and elevated LFTs. DISCHARGE DIAGNOSES: Black tarry stools and coffee-grounds emesis, alcohol abuse, morbid obesity with a BMI of 44.6, elevated LFTs, acute blood loss anemia secondary to GI bleed with esophageal varices grade 1 and 2, and portal hypertensive gastropathy. HISTORY: EtOH abuse. SURGICAL HISTORY: None. FAMILY HISTORY: The patient's aunt had diabetes. The patient's grandfather had cancer. SOCIAL HISTORY: The patient admits to drinking at least 750 mL liquor a day. HOSPITAL COURSE: 28-year-old male admits with complaints of black tarry stools since yesterday. He denies bright red blood per rectum. He also admits to having coffee-grounds emesis x1 in the ER. On admission, hemoglobin was 12.3. The patient was started on Protonix and octreotide drip. GI was consulted. Chest x-ray was negative. Stool for blood came back positive. The patient had multiple nosebleeds while in the hospital. On 11/23/2019, the patient was taken for an EGD, which showed grade 1 and two esophageal varices, coffee-ground material in the stomach and portal hypertensive gastropathy. The patient was started on Inderal per GI recommendation. He will also discharge home with prescription for Protonix per GI as well as Topamax and bupropion per psych recommendation to help with the alcohol cessation and Librium for 3 more days to help with any withdrawal. The patient understands instructions and agrees to plan. Vital signs are stable. The patient afebrile. Dictated by Erin Hernandez NP Marcelino Lieberman MD [facility] /[id number]
== END 2019-11-25 14:15 | disposition home or self-care (01) | DRG 368 ==
LOC: ER 10:53 → ERHOLD 13:46 → MED/SURG2 20:58
PROVIDERS: ADMIT Internal Medicine; ATTEND Internal Medicine
PROC: 0DB78ZX Excision of Stomach, Pylorus, Via Natural or Artificial Opening Endoscopic, Diagnostic (ICD-10-PCS; principal; 2019-11-23 14:00)
DX: I85.01 Esophageal varices with bleeding (principal); K85.20 Alcohol induced acute pancreatitis without necrosis or infection; Z68.41 Body mass index [BMI] 40.0-44.9, adult; K76.6 Portal hypertension; D62 Acute posthemorrhagic anemia; K25.7 Chronic gastric ulcer without hemorrhage or perforation; I10 Essential (primary) hypertension; E66.01 Morbid (severe) obesity due to excess calories; F10.220 Alcohol dependence with intoxication, uncomplicated; F43.23 Adjustment disorder with mixed anxiety and depressed mood; K31.89 Other diseases of stomach and duodenum; K21.9 Gastro-esophageal reflux disease without esophagitis; Z83.3 Family history of diabetes mellitus; Z80.9 Family history of malignant neoplasm, unspecified; R04.0 Epistaxis
CPT/HCPCS: 36415; 43239; 71045; 76705; 80053; 81001; 82270; 82550; 82553; 83036; 83690; 83735; 84484; 85025; 85610; 85730; 86850; 86870; 86880; 86900; 86905; 87086; 87635; 88305; 88312; 93005; 99001; 99284; J0360; J2001; J2060; J2250; J2353; J2354; J2405; J3010; J3411; J3430; J7030; J7050